=== PATIENT | male | born 1965 | race Caucasian/White ===

== ENCOUNTER 2017-04-12 11:18 | Emergency (ER) | payer OTHER, SELFPAY ==
[2017-04-12] MEDS ORDERED: Ketorolac Tromethamine 30 MG/ML VIAL ONE (11:47)
[2017-04-12] MEDS ORDERED: Metoclopramide HCl 10 MG/2 ML VIAL ONE (11:47)
[2017-04-12] MEDS ORDERED: diphenhydrAMINE 50 MG/ML VIAL ONE (11:47)
== END 2017-04-12 12:48 | disposition home or self-care (01) ==
LOC: ERS 11:18
DX: R51 Headache (principal)
CPT/HCPCS: 96361; 96374; 96375; J1200; J1885; J2765